=== PATIENT | female | born 1995 | race Caucasian/White ===

== ENCOUNTER 2018-03-06 23:44 | Emergency (ER) | payer MEDICAID ==
[~2018-03-06] VITALS: Ht 154.9 cm; Wt 70.3 kg
[2018-03-06] MEDS ORDERED: PRENATAL (23:58)
[2018-03-07] MEDS ORDERED: AUGMENTIN 500-1 EACH PO (01:27)
[2018-03-07 01:48] VITALS: BP 112/67
== END 2018-03-07 01:48 | disposition home or self-care (01) ==
LOC: ER 23:44
DX: O9A.212 Injury, poisoning and certain other consequences of external causes complicating pregnancy, second trimester (principal); S41.151A Open bite of right upper arm, initial encounter; Z3A.20 20 weeks gestation of pregnancy; W54.0XXA Bitten by dog, initial encounter; Y93.89 Activity, other specified; Y92.009 Unspecified place in unspecified non-institutional (private) residence as the place of occurrence of the external cause; Y99.8 Other external cause status

== ENCOUNTER 2020-02-01 21:09 | Emergency (ER) | payer MEDICAID ==
[~2020-02-01] VITALS: Ht 162.6 cm; Wt 72.6 kg
[~2020-02-01 21:09] MED LIST: AUGMENTIN 500-1 EACH PO; PRENATAL
[2020-02-01 23:10] VITALS: BP 132/78
== END 2020-02-01 23:07 | disposition home or self-care (01) ==
LOC: ER 21:09
DX: S92.522A Displaced fracture of middle phalanx of left lesser toe(s), initial encounter for closed fracture (principal); Z79.899 Other long term (current) drug therapy; W20.8XXA Other cause of strike by thrown, projected or falling object, initial encounter; Y93.89 Activity, other specified; Y92.098 Other place in other non-institutional residence as the place of occurrence of the external cause; Y99.8 Other external cause status